=== PATIENT | male | born 1995 | race Caucasian/White ===

== ENCOUNTER 2024-10-12 04:37 | Inpatient (IN) | payer SELFPAY ==
--- NOTE | ~2024-10-12 | US_ITS ---
CLINICAL HISTORY: Right testicular abscess Exam: Ultrasound of the testes and scrotum with duplex evaluation of the testes. Comparison: None. Findings: Right testicle measures 5.9 x 3.6 x 3.6 cm in size. Right testicle is of normal echotexture without mass lesion. Several cysts within the right epididymis measure up to 13 mm in size. Large complex right hydrocele measures 6.4 x 4.8 cm in size. Numerous internal septations within this. Diffuse hyperemia surrounding hydrocele. Left testicle measures 5.7 x 2.6 x 3.2 cm in size. Left testicle is of normal echotexture without mass lesion. Left epididymis is unremarkable aside from a simple 9 mm cyst. Duplex evaluation of the testicles was performed. This included real-time grayscale, color spectral Doppler analysis, and color Doppler flow imaging. Documented blood flow to both testicles. Hyperemia surrounding the right hydrocele as discussed above. Impression: 1. Large complex right hydrocele with surrounding hyperemia. Given the clinical history provided of sexually transmitted infection, infected hydrocele should be considered and clinical correlation is advised. 2. No testicular mass or intratesticular abscess identified. This document has been electronically signed by: Ronald Carbone MD on 10/12/2024 06:24:08
[2024-10-12 04:44] VITALS: BP 141/56; BP 150/48; PULSE 77; RESP 17; TEMP 37.8; O2SAT 97; BMI 41.8
[2024-10-12 04:45] VITALS: BP 141/56; PULSE 77; RESP 21; TEMP 37.8; O2SAT 96
--- NOTE | 2024-10-12 04:50 | ED.MALEGU ---
HPI - Male Genitourinary General Chief complaint: Urogenital-Male Stated complaint: TESTICLE SWELLING Time Seen by Provider: 10/12/24 04:50 Source: patient Mode of arrival: ambulatory Limitations: no limitations History of Present Illness ED Provider: HPI Narrative: Patient is herosexual active with history of syphilis 3 years ago and GC chlamydia several years ago comes here for swelling of the right testicle with penile discharge for last 1 month which is getting worse with fever and chills for last few days no nausea no vomiting no abdominal pain Related Data Allergies Allergy/AdvReac Type Severity Reaction Status Date / Time No Known Allergies Allergy Verified 10/12/24 04:44 Review of Systems Review of Systems: Yes all other systems are reviewed and are negative [facility] Past Medical History Medical History (Updated 10/12/24 @ 07:28 by Cruz Reyes MD) History of syphilis History of chlamydia Social History Social History Unable to assess alcohol history related to: Unknown Use of substances other than those prescribed or required for medical reasons: Unknown Advance Directives: No Advance Directives Information Provided: Yes Do you have a plan to hurt others: No Plan Physical Exam Vital Signs: Vital Signs: Last Vital Signs Temp 98.1 F 10/12/24 07:22 Pulse 76 10/12/24 07:22 Resp 16 10/12/24 07:22 BP 123/62 10/12/24 07:22 Pulse Ox 99 10/12/24 07:22 O2 Del Method Room Air 10/12/24 07:22 BMI result Body Mass Index 41.8 Appearance: Alert. Oriented X3. In moderate distress febrile ENT: Pharynx normal. Oral Mucosa moist Neck: Normal inspection. Neck supple. CVS: Normal heart rate and rhythm. Pulses normal. Respiratory: No respiratory distress. Equal air entry bilateral, Abdomen: Soft and nontender. Bowel sounds are present, no mass palpable, no CVA tenderness : Whitish penile discharge with enlarged tender right testicle with fluid+++ hydrocele Skin: Skin warm and dry. Normal skin color. Normal skin turgor. Extremities: No lower extremity edema. No calf tenderness Neuro: Oriented X 3. No motor deficit. Medications Administered Generic Name Dose Route Start Last Admin Trade Name Freq PRN Reason Stop Dose Admin Doxycycline Hyclate 100 mg/ 250 mls @ 166.67 mls/hr 10/12/24 07:00 10/12/24 07:21 Sodium Chloride IV 166.67 mls/hr Q12H ION Administration Sodium Chloride 3 ml 10/12/24 08:00 10/12/24 07:26 0.9 % Sodium Chloride Flush 3 Ml Syringe IVFLUSH Not Given QSHIFT ION Discontinued Medications Generic Name Dose Route Start Last Admin Trade Name Naeem PRN Reason Stop Dose Admin Ceftriaxone Sodium 1 gm/ 0 gm 10/12/24 05:00 10/12/24 05:08 Lidocaine HCl 2.1 ml IM 10/12/24 05:01 1 kit ONCE ONE Administration Sodium Chloride 1,000 mls @ 999 mls/hr 10/12/24 04:55 10/12/24 06:43 Ns IV 10/12/24 05:55 Infused .Q1H1M ONE Infusion Levofloxacin 750 mg in 150 mls @ 100 mls/hr 10/12/24 04:55 10/12/24 06:43 Levaquin IV 10/12/24 06:24 Infused ONCE ONE Infusion Ketorolac Tromethamine 30 mg 10/12/24 05:46 10/12/24 05:51 Ketorolac Tromethamine 30 Mg/Ml Vial IVPUSH 10/12/24 05:47 30 mg ONCE ONE Administration Morphine Sulfate 4 mg 10/12/24 05:46 10/12/24 05:51 Morphine Sulfate 4 Mg/Ml Cartridge IVPUSH 10/12/24 05:47 4 mg ONCE ONE Administration Protocol Ondansetron HCl 4 mg 10/12/24 05:46 10/12/24 05:50 Ondansetron Hcl 4 Mg/2 Ml Vial IVPUSH 10/12/24 05:47 4 mg ONCE ONE Administration Medical Decision Making Medical Decision Making [facility] Narrative: Patient is sexually active with history of STIs with right infected hydrocele started on Levaquin IV with Rocephin IM. Case discussed Dr. Mendez to continue same treatment Dr. Mckeon follow on the floor Differential Diagnosis Differential Diagnoses: The differential diagnosis associated with the presentation includes Epididymitis/epididymo-orchitis/scrotal abscess/cellulitis Admission/Observation Consideration of admission/observation: Escalation of care including admission/observation considered Consult Healthcare Provider Management of the patient was discussed with: Hospitalist Lab Data MDM Lab Attestation statement: I reviewed the patient's lab results. 10/12/24 05:02 10/12/24 05:02 Labs: Lab Results 10/12/24 Range/Units 05:02 WBC 19.9 H (4.8-10.8) X10*3/uL RBC 4.92 (4.60-5.80) X10*6/uL Hgb 13.3 L (14.0-18.0) g/dl Hct 40.8 L (42.0-52.0) % MCV 82.9 (80.0-98.0) fL MCH 27.0 (27.0-33.0) pg MCHC 32.6 (31.0-36.0) g/dl RDW 12.3 (11.0-16.0) % Plt Count 354 (160-400) X10*3/uL MPV 9.6 (9.4-12.4) fL Immature Gran % (Auto) 0.7 H (0.0-0.4) % Neut % (Auto) 83.9 H (45-73) % Lymph % (Auto) 4.0 L (20-40) % [place] % (Auto) 11.0 (2-11) % Eos % (Auto) 0.1 (0-4) % Baso % (Auto) 0.3 (0-2) % Lymph # (Auto) 0.8 L (1.2-4.9) X10*3/uL [place] # (Auto) 2.2 H (0.1-1.2) X10*3/uL Eos # (Auto) 0.0 (0.0-0.4) X10*3/uL Baso # (Auto) 0.1 (0.0-0.2) X10*3/uL Abs Immat Gran (auto) 0.13 H (0.00-0.03) X10*3/uL Absolute Neuts (auto) 16.8 H (2.0-8.3) x10*3/uL Absolute Nucleated RBC 0.000 (0.0-0.012) X10*3/uL Nucleated RBC % (auto) 0.0 (0.0-0.2) /100WBC Smear Tech's Comments VERIFIED Sodium 136 (135-145) mmol/L Potassium 3.5 (3.3-5.1) mmol/L Chloride 105 (96-108) mmol/L Carbon Dioxide 23 (22-29) mmol/L Anion Gap 12 (12-20) BUN 6 L (9-16) mg/dL Creatinine 0.74 (0.5-1.4) mg/dL Estim Creat Clear Calc 205.5 Estimated GFR > 60 Random Glucose 121 H (60-115) mg/dL Lactic Acid 1.5 (0.5-2.0) mmol/L Calcium 8.8 (8.4-10.2) mg/dL Total Bilirubin 0.6 (0.0-1.0) mg/dL AST 21 (5-37) U/L ALT 15 (0-40) U/L Alkaline Phosphatase 47 (39-117) U/L Total Protein 7.2 (6.5-8.0) g/dL Albumin 3.9 (3.5-5.0) g/dL Influenza Type A (PCR) NEGATIVE (Negative) Influenza Type B (PCR) NEGATIVE (Negative) RSV RNA Qual (PCR) NEGATIVE (Negative) SARS-CoV-2 RNA (RT-PCR) NEGATIVE (Negative) Independent Interpretation I performed an independent interpretation of an: Ultrasound Radiology Impression Discussion of test interpretation with radiology: I have reviewed the radiologist's reading. Radiologist Impression: [place] [id number] Ultrasound Report Signed Patient: Stanislaw Monterroso MR#: [id number] : 1995 Acct:[id number] Age/Sex: 29 / M ADM Date: 10/12/24 Loc: .ED Attending Dr: Ordering Physician: Cruz Reyes MD Date of Service: 10/12/24 Procedure(s): US scrotum Accession Number(s): [id number] cc: Physician,Unknown ; Cruz Reyes MD~ CLINICAL HISTORY: Right testicular abscess Exam: Ultrasound of the testes and scrotum with duplex evaluation of the testes. Comparison: None. Findings: Right testicle measures 5.9 x 3.6 x 3.6 cm in size. Right testicle is of normal echotexture without mass lesion. Several cysts within the right epididymis measure up to 13 mm in size. Large complex right hydrocele measures 6.4 x 4.8 cm in size. Numerous internal septations within this. Diffuse hyperemia surrounding hydrocele. Left testicle measures 5.7 x 2.6 x 3.2 cm in size. Left testicle is of normal echotexture without mass lesion. Left epididymis is unremarkable aside from a simple 9 mm cyst. Duplex evaluation of the testicles was performed. This included real-time grayscale, color spectral Doppler analysis, and color Doppler flow imaging. Documented blood flow to both testicles. Hyperemia surrounding the right hydrocele as discussed above. Impression: 1. Large complex right hydrocele with surrounding hyperemia. Given the clinical history provided of sexually transmitted infection, infected hydrocele should be considered and clinical correlation is advised. 2. No testicular mass or intratesticular abscess identified. This document has been electronically signed by: Ronald Carbone MD on 10/12/2024 06:24:08 Discharge Plan Discharge Clinical Impression: Infected hydrocele, History of syphilis Patient Disposition: Admitted As Inpatient
[2024-10-12] MEDS: 0.9 % Sodium Chloride 1,000 ML 999 ML IV (05:08)
[2024-10-12] MEDS: levoFLOXacin/D5W 750 MG/150 ML PIGGYBACK 100 MG IV (05:08)
[2024-10-12] MEDS: cefTRIAXone sodium 1 GM, Lidocaine HCl 1 % MPF 2.1 ML IM (05:08)
[2024-10-12 05:23] LABS: Basophils Absolute Auto 0.1 X10*3/uL (0.0-0.2); Basophils Percent Auto 0.3 % (0-2); Eosinophils Percent Auto 0.1 % (0-4); Hematocrit 40.8 % (42.0-52.0); Hemoglobin 13.3 g/dl (14.0-18.0); Imm Gran Abs Auto 0.13 X10*3/uL (0.00-0.03); Imm Gran Pct Auto 0.7 % (0.0-0.4); Lymphocytes Absolute Auto 0.8 X10*3/uL (1.2-4.9); MANUAL DIFF FLAG SCAN; Mean Corpuscular HGB Conc 32.6 g/dl (31.0-36.0); Mean Corpuscular Volume 82.9 fL (80.0-98.0); Mean Platelet Volume 9.6 fL (9.4-12.4); Monocytes Absolute Auto 2.2 X10*3/uL (0.1-1.2); Neutrophils Absolute Auto 16.8 x10*3/uL (2.0-8.3); Neutrophils Percent Auto 83.9 % (45-73); Platelet Count 354 X10*3/uL (160-400); Red Blood Count 4.92 X10*6/uL (4.60-5.80); Red Cell Distribution Width 12.3 % (11.0-16.0); SCAN SMEAR FLAG 1; White Blood Count 19.9 X10*3/uL (4.8-10.8)
[2024-10-12 05:41] LABS: SLIDE REVIEW VERIFIED
[2024-10-12 05:45] LABS: Lactic Acid 1.5 mmol/L (0.5-2.0)
[2024-10-12 05:46] LABS: Alanine Aminotransferase 15 U/L (0-40); Albumin Level 3.9 g/dL (3.5-5.0); Alkaline Phosphatase 47 U/L (39-117); Anion Gap 12 (12-20); Aspartate Amino Transferase 21 U/L (5-37); Bilirubin Total 0.6 mg/dL (0.0-1.0); Blood Urea Nitrogen 6 mg/dL (9-16); Calcium 8.8 mg/dL (8.4-10.2); Carbon Dioxide 23 mmol/L (22-29); Chloride 105 mmol/L (96-108); Creatinine Clr Calc Pharmacy 205.5; Estimated Glomerular Filt Rate > 60; Glucose Random 121 mg/dL (60-115); Potassium 3.5 mmol/L (3.3-5.1); Sodium 136 mmol/L (135-145); Total Protein 7.2 g/dL (6.5-8.0)
[2024-10-12] MEDS: ondansetron HCL 4 MG/2 ML VIAL IVPUSH (05:50)
[2024-10-12] MEDS: Ketorolac Tromethamine 30 MG/ML VIAL IVPUSH (05:51)
[2024-10-12] MEDS: Morphine Sulfate 4 MG/ML CARTRIDGE IVPUSH ×2 (05:51→16:24)
[2024-10-12 05:59] LABS: Influenza A PCR NEGATIVE (Negative); Influenza B PCR NEGATIVE (Negative); Resp Syncy Virus RNA Qual PCR NEGATIVE (Negative); SARS COV2 PCR INHOUSE NEGATIVE (Negative)
--- NOTE | 2024-10-12 06:26 | P.HPHOSP_ITS ---
History of Present Illness Date of Service: 10/12/24 Attending physician on admission: Sonja Ramirez Chief Complaint: R testicular swelling, penile discharge Patient is a 29-year-old male with a past medical history significant for syphilis at 26 years old and chlamydia at 16 years old, who presented to the ED with right testicular swelling since 10/08/2024 and penile discharge worsening over the past few months. He denies any blood in the discharge or foul odor. Since the swelling began he started to have a fever and chills. He reports he was last sexually active on 10/09/2024. He does have increased pain with a bowel movement and denies any nausea vomiting or urinary symptoms including dysuria, frequency or urgency. He denies any abdominal pain. He denies anal intercourse or recent urologic procedures. Review of Systems 2 Constitutional: Constitutional: Reports chills, Denies fatigue, Reports fever(s) and Denies headache(s) Eyes: Eyes: Denies change in vision ENT: Denies headache(s), Denies nasal congestion, Denies nasal discharge and Denies sore throat Cardiovascular: Cardiovascular: Denies chest pain, Denies rapid heart rate, Denies leg edema, Denies lightheadedness and Denies dyspnea Respiratory: Respiratory: Denies chest congestion, Denies cough, Denies dyspnea and Denies wheezing Gastrointestinal: Gastrointestinal: Denies constipation, Denies nausea and Denies vomiting Genitourinary: Genitourinary: Reports as per HPI, Denies dysuria, Reports penile discharge, Reports scrotal swelling, Denies urinary frequency, Denies urinary hesitancy and Denies urinary urgency Musculoskeletal: Musculoskeletal: Denies numbness and Denies tingling Integumentary/Breasts: Skin/Breast: Denies rash Neurologic: Denies confusion, Denies headache(s), Denies numbness and Denies tingling Psychiatric: Psychiatric: Denies confusion Endocrine: Endocrine: Denies fatigue Hematologic/Lymphatic: Hematologic/Lymphatic: Denies easy bleeding and Denies easy bruising Allergic/Immunologic: Allergic/Immunologic: Denies wheezing [facility] Medical History (Updated 10/12/24 @ 06:33 by Lupis Burton PA-C) History of syphilis History of chlamydia Functional capacity: independent ambulation Social History Advance Directives: No Advance Directives Information Provided: Yes Do you have a plan to hurt others: No Plan Narrative: sexually active with girlfriend. works as a DJ. drinks on weekends at work. vapes nicotine. occasional cocaine use. Meds Allergies Allergy/AdvReac Type Severity Reaction Status Date / Time No Known Allergies Allergy Verified 10/12/24 04:44 Physical Exam 2 Vital Signs and Narrative: Vital Signs: Last Vital Signs Temp 100.0 F 10/12/24 04:45 Pulse 77 10/12/24 04:45 Resp 21 H 10/12/24 04:45 BP 141/56 H 10/12/24 04:45 Pulse Ox 96 10/12/24 04:45 O2 Del Method Room Air 10/12/24 04:45 BMI result Body Mass Index 41.8 General: AOx3, appears uncomfotable. girlfriend present in room initally but asked to leave for pt comfort Resp: CTA bilaterally CVS: S1, S2, RRR GI: +BS, NT, no distention Skin: Warm, dry : significant edema R testicle about the size of a baseball with erythema, tender to touch. no penile discharge currently Neuro: Cranial nerves II-XII grossly intact bilaterally. Motor grossly intact bilaterally Extremities: No LE edema Psych: Appropriate affect Const: General: No confusion Orientation/consciousness: No confusion Neuro: General: No confusion Results Labs 10/12/24 05:02 10/12/24 05:02 Labs: Laboratory Results - last 24 hr 10/12/24 05:02 MCV 82.9 MCH 27.0 MCHC 32.6 RDW 12.3 Plt Count 354 MPV 9.6 Immature Gran % (Auto) 0.7 H Neut % (Auto) 83.9 H Lymph % (Auto) 4.0 L [place] % (Auto) 11.0 Eos % (Auto) 0.1 Baso % (Auto) 0.3 Lymph # (Auto) 0.8 L [place] # (Auto) 2.2 H Eos # (Auto) 0.0 Baso # (Auto) 0.1 Abs Immat Gran (auto) 0.13 H Absolute Neuts (auto) 16.8 H Absolute Nucleated RBC 0.000 Nucleated RBC % (auto) 0.0 Smear Tech's Comments VERIFIED Anion Gap 12 Estim Creat Clear Calc 205.5 Estimated GFR > 60 Random Glucose 121 H Lactic Acid 1.5 Calcium 8.8 Total Bilirubin 0.6 AST 21 ALT 15 Alkaline Phosphatase 47 Total Protein 7.2 Albumin 3.9 Influenza Type A (PCR) NEGATIVE Influenza Type B (PCR) NEGATIVE RSV RNA Qual (PCR) NEGATIVE SARS-CoV-2 RNA (RT-PCR) NEGATIVE Assessment and Plan (1) Sepsis: Status: Acute (2) Infected hydrocele: Status: Acute (3) History of chlamydia: Status: Acute (4) Morbid obesity with BMI of 40.0-44.9, adult: Status: Chronic Plan Patient is a 29-year-old male with a past medical history significant for syphilis at 26 years old and chlamydia at 16 years old, who presented to the ED with right testicular swelling since 10/08/2024 and penile discharge worsening over the past few months. Scrotal ultrasound with infected hydrocele. Unable to give urine sample for STI testing and UA. Urology was contacted by the ED for admission however declined and recommended hospitalist admission. Sepsis secondary to infected hydrocele, history of chlamydia - WBC 19.9, jing 100.0, mild tachypnea, lactic acid normal, blood cultures x2 pending, not severe sepsis - scrotal ultrasound with infected hydrocele - has been unable to urinate for STI testing and UA - patient given ceftriaxone IM and started on IV Levaquin in ED, switch to IV doxycycline as patient has not had any recent urologic procedures and does not participate in anal intercourse - NPO - urology consult - monitor CBC and BMP Morbid obesity - BMI 41.8 - weight loss encouraged Full code VTE prophylaxis: Pneumoboots pending evaluation by Urology Patient with sepsis secondary to infected hydrocele, requiring admission for at least 2 midnights stay for IV antibiotics. Quality Stroke Does the patient have a stroke diagnosis?: No VTE Prior VTE?: No VTE Risk Level:: Medical - moderate - high VTE Device Contraindication: N/A - Device Ordered VTE Drug Contraindication: Treatment Not Indicated
[2024-10-12 07:14] LABS: Appearance Urine Cloudy; Color Urine Dark Yellow; Glucose Urine UA Negative (Negative); Leukocyte Esterase Urine Negative (Negative); Nitrite Urine Negative (Negative); PH 7.5 (5.0-9.0); Specific Gravity - Urine 1.025 (1.005-1.025); UMIC TRIGGER UACC YES; Urine Blood Negative (Negative); Urine Ketones Trace mg/dL (Negative); Urine Protein 30 (1+) mg/dL (Neg-Trace)
[2024-10-12 07:18] LABS: Bacteria Urine None Seen (None Seen); Hyaline Casts Urine 0-2 /LPF (0-2); RBC Urine 0-2 /HPF (0-2); WBC Urine 0-5 /HPF (0-5)
[2024-10-12] MEDS: Doxycycline Hyclate 100 MG in 0.9 % Sodium Chloride 250 ML 166.67 MG IV ×2 (07:21→18:06)
[2024-10-12 07:22] VITALS: BP 123/62; PULSE 76; RESP 16; TEMP 36.7; O2SAT 99
[2024-10-12 07:52] LABS: Syphilis Screen Reactive (Nonreactive)
--- NOTE | 2024-10-12 08:00 | PC.NURSE ---
assumed care of patient, patient is alert and oriented x4, was able to ambulate on own with steady gait to the bathroom for urine sample. patient VSS, skin noted to be dry and intact, resp even and unlabored. medicated per MAR
--- NOTE | 2024-10-12 09:55 | PHA.MEDREC ---
Addendum entered by Esa Rodriguez RPh 10/12/24 10:31: MED REC CHECKED BY [facility] Original Note: Pharmacy Consult ? Medication Reconciliation Pharmacy has completed the medication reconciliation.
[2024-10-12 10:42] LABS: CT PCR NOT DETECTED (Not Detect.); NG PCR NOT DETECTED (Not Detect.)
--- NOTE | 2024-10-12 11:34 | PM.UROCN ---
History of Present Illness Consult details Consult date: 10/12/24 Narrative: CC: Right infected hydrocele 29-year-old male Past history syphilis 3 years ago, chlamydia 13 years ago Presents to emergency room with swelling for prior 3 days Penile discharge Reports fever and chills WBC 19.9, temp 100 degrees Has been given IV antibiotics On exam has swollen right testicle, warm to touch, [id number] discomfort Treat with antibiotics for 48 hours before decision should be made regarding incision and drainage Review of Systems Constitutional: Constitutional: Reports as per HPI and Reports no additional constitutional complaints Cardiovascular: Cardiovascular: Reports as per HPI and Reports no additional cardiovascular complaints Respiratory: Respiratory: Reports as per HPI and Reports no additional respiratory complaints Gastrointestinal: Gastrointestinal: Reports as per HPI and Reports no additional gastrointestinal complaints Genitourinary: Genitourinary: Reports as per HPI Musculoskeletal: Musculoskeletal: Reports no additional musculoskeletal complaints and Reports as per HPI Neurologic: Reports system reviewed and no additional complaints, except as documented and Reports as per HPI [facility] Past Medical History Medical History (Updated 10/12/24 @ 07:28 by Cruz Reyes MD) History of syphilis History of chlamydia Social History Social History Unable to assess alcohol history related to: Unknown Use of substances other than those prescribed or required for medical reasons: Unknown Advance Directives: No Advance Directives Information Provided: Yes Do you have a plan to hurt others: No Plan Meds Allergies Allergy/AdvReac Type Severity Reaction Status Date / Time No Known Allergies Allergy Verified 10/12/24 04:44 Active Medications: Current Medications Acetaminophen (Acetaminophen 325 Mg Tablet) 650 mg PO Q6H PRN PRN Reason: Pain, Mild 1-3,fever,headache Calcium Carbonate (Calcium Carbonate 750 Mg Tab.Chew) 750 mg PO Q4H PRN PRN Reason: Heartburn Doxycycline Hyclate 100 mg/ (Sodium Chloride) 250 mls @ 166.67 mls/hr IV Q12H ION Last Infusion: 10/12/24 08:56 Dose: Infused Magnesium Hydroxide (Milk Of Magnesia 30 Ml Oral.Susp) 30 ml PO DAILY PRN PRN Reason: Constipation Melatonin (Melatonin 3 Mg Tablet) 6 mg PO BEDTIME PRN PRN Reason: Insomnia Morphine Sulfate (Morphine Sulfate 4 Mg/Ml Cartridge) 4 mg IVPUSH Q4H PRN; Protocol PRN Reason: Pain, Severe (Pain Scale 7-10) Ondansetron HCl (Ondansetron Hcl 4 Mg/2 Ml Vial) 4 mg IVPUSH Q8H PRN PRN Reason: Nausea and Vomiting Sodium Chloride (0.9 % Sodium Chloride Flush 3 Ml Syringe) 3 ml IVFLUSH QSHIFT ION Last Admin: 10/12/24 07:26 Dose: Not Given Home Medications ?Medication ?Instructions ?Recorded ?Confirmed ?Last Taken ?Type No Known Home Meds 10/12/24 10/12/24 Unknown History Physical Exam Vital Signs: Vital Signs: Last Vital Signs Temp 98.1 F 10/12/24 07:22 Pulse 76 10/12/24 07:22 Resp 16 10/12/24 07:22 BP 123/62 10/12/24 07:22 Pulse Ox 99 10/12/24 07:22 O2 Del Method Room Air 10/12/24 07:22 BMI result Body Mass Index 41.8 Const: General: cooperative, healthy appearing, comfortable and no acute distress Orientation/consciousness: patient oriented x3 HEENT: Face and sinus: Yes normal facial exam Mouth: moist mucous membranes Neck: Neck: Yes normal visual inspection, Yes full ROM and Yes trachea midline Chest: Chest palpation & inspection: normal inspection of the chest Resp: Effort & Inspection: normal respiratory effort, able to speak in complete sentences and no respiratory distress GI: Inspection: Yes normal to inspection Back/Spine/Pelvis: Cervical Spine: normal cervical lordosis Thoracic/Lumbar Spine: thoracic and lumbar spine normal to inspection Skin: General skin exam: no rashes or lesions noted Neuro: General: patient oriented x3, tone normal and moves all extremities Extrem: General: Yes normal to inspection and Yes capillary refill normal Results Labs 10/12/24 05:02 10/12/24 05:02 Labs: Abnormal lab results 10/12/24 10/12/24 10/12/24 Range/Units 05:02 06:49 07:07 WBC 19.9 H (4.8-10.8) X10*3/uL Hgb 13.3 L (14.0-18.0) g/dl Hct 40.8 L (42.0-52.0) % Immature Gran % (Auto) 0.7 H (0.0-0.4) % Neut % (Auto) 83.9 H (45-73) % Lymph % (Auto) 4.0 L (20-40) % Lymph # (Auto) 0.8 L (1.2-4.9) X10*3/uL [place] # (Auto) 2.2 H (0.1-1.2) X10*3/uL Abs Immat Gran (auto) 0.13 H (0.00-0.03) X10*3/uL Absolute Neuts (auto) 16.8 H (2.0-8.3) x10*3/uL BUN 6 L (9-16) mg/dL Random Glucose 121 H (60-115) mg/dL Urine Protein 30 (1+) H (Neg-Trace) mg/dL T.pallidum Ab (EIA) Reactive A (Nonreactive) Short CBC 10/12/24 Range/Units 05:02 WBC 19.9 H (4.8-10.8) X10*3/uL Hgb 13.3 L (14.0-18.0) g/dl Hct 40.8 L (42.0-52.0) % Plt Count 354 (160-400) X10*3/uL BMP 10/12/24 05:02 Sodium 136 Potassium 3.5 Chloride 105 Carbon Dioxide 23 BUN 6 L Creatinine 0.74 Calcium 8.8 Liver Function 10/12/24 Range/Units 05:02 Total Bilirubin 0.6 (0.0-1.0) mg/dL AST 21 (5-37) U/L ALT 15 (0-40) U/L Alkaline Phosphatase 47 (39-117) U/L Albumin 3.9 (3.5-5.0) g/dL Urine 10/12/24 Range/Units 07:07 Urine Color Dark Yellow Urine Appearance Cloudy Urine pH 7.5 (5.0-9.0) Ur Specific [place] 1.025 (1.005-1.025) Urine Protein 30 (1+) H (Neg-Trace) mg/dL Urine Glucose (UA) Negative (Negative) mg/dL All other labs normal. Assessment and Plan (1) Infected hydrocele: Status: Acute Plan Treat with IV fluids and antibiotics Review daily Procedures Date of Service Date of Service: 10/12/24
--- NOTE | 2024-10-12 13:33 | PM.EVENT ---
Event Note Date of Service: 10/12/24 Event Note: Patient is a 29-year-old male with a past medical history significant for syphilis at 26 years old and chlamydia at 16 years old, who presented to the ED with right testicular swelling since 10/08/2024 and penile discharge worsening over the past few months. Scrotal ultrasound with infected hydrocele. Unable to give urine sample for STI testing and UA. Urology was contacted by the ED for admission however declined and recommended hospitalist admission. Sepsis secondary to infected hydrocele, history of chlamydia scrotal ultrasound with infected hydrocele neg STI testing patient given ceftriaxone IM and started on IV Levaquin in ED, switch to IV doxycycline as patient has not had any recent urologic procedures and does not participate in anal intercourse urology following>continue abx and monitor monitor CBC and BMP Morbid obesity BMI 41.8 weight loss encouraged Full code VTE prophylaxis: Pneumoboots pending evaluation by Urology Patient with sepsis secondary to infected hydrocele, requiring admission for at least 2 midnights stay for IV antibiotics. Time Spent With Patient Time: Total time managing care of this patient today ____ minutes.
[2024-10-12 14:56] VITALS: BP 128/67; PULSE 77; RESP 16; TEMP 37.2; O2SAT 98
[2024-10-12 16:00] VITALS: BP 129/60; PULSE 73; RESP 18; TEMP 37.2; O2SAT 96
[2024-10-12] MEDS: 0.9 % Sodium Chloride Flush 3 ML SYRINGE IVFLUSH ×2 (16:28→19:53)
[2024-10-12 19:51] VITALS: BP 127/65; PULSE 68; RESP 17; TEMP 36.6; O2SAT 98
[2024-10-13 03:54] VITALS: BP 154/80; PULSE 80; RESP 18; TEMP 37.2; O2SAT 99
[2024-10-13 06:02] LABS: Basophils Absolute Auto 0.1 X10*3/uL (0.0-0.2); Basophils Percent Auto 0.3 % (0-2); Eosinophils Absolute Auto 0.1 X10*3/uL (0.0-0.4); Eosinophils Percent Auto 0.3 % (0-4); Hematocrit 43.3 % (42.0-52.0); Hemoglobin 13.9 g/dl (14.0-18.0); Imm Gran Abs Auto 0.16 X10*3/uL (0.00-0.03); Imm Gran Pct Auto 0.7 % (0.0-0.4); Lymphocytes Percent Auto 8.5 % (20-40); MANUAL DIFF FLAG SCAN; Mean Corpuscular HGB Conc 32.1 g/dl (31.0-36.0); Mean Corpuscular Volume 84.1 fL (80.0-98.0); Mean Platelet Volume 10.3 fL (9.4-12.4); Monocytes Absolute Auto 2.8 X10*3/uL (0.1-1.2); Monocytes Percent Auto 11.4 % (2-11); Neutrophils Percent Auto 78.8 % (45-73); Platelet Count 396 X10*3/uL (160-400); Red Blood Count 5.15 X10*6/uL (4.60-5.80); Red Cell Distribution Width 12.5 % (11.0-16.0); SCAN SMEAR FLAG 1; White Blood Count 24.1 X10*3/uL (4.8-10.8)
[2024-10-13 06:20] LABS: Anion Gap 15 (12-20); Blood Urea Nitrogen 8 mg/dL (9-16); Calcium 9.8 mg/dL (8.4-10.2); Carbon Dioxide 22 mmol/L (22-29); Chloride 105 mmol/L (96-108); Creatinine Clr Calc Pharmacy 205.5; Estimated Glomerular Filt Rate > 60; Glucose Random 96 mg/dL (60-115); Potassium 3.9 mmol/L (3.3-5.1); Sodium 138 mmol/L (135-145)
[2024-10-13 06:24] LABS: SLIDE REVIEW VERIFIED
[2024-10-13] MEDS: Doxycycline Hyclate 100 MG in 0.9 % Sodium Chloride 250 ML 166.67 MG IV (06:35)
[2024-10-13 07:56] VITALS: BP 120/58; PULSE 80; RESP 16; TEMP 36.6; O2SAT 97
--- NOTE | 2024-10-13 08:46 | HO.PM.IMPN ---
Subjective Subjective Date of Service: 10/13/24 Review of Systems Follow up testicular pain, hydrocele pain is improved still with swelling Physical Exam Vital Signs: Vital Signs: Last Vital Signs Temp 97.9 F 10/13/24 07:56 Pulse 80 10/13/24 07:56 Resp 16 10/13/24 07:56 BP 120/58 L 10/13/24 07:56 Pulse Ox 97 10/13/24 07:56 O2 Del Method Room Air 10/13/24 07:56 BMI result Body Mass Index 41.8 Appearing in no acute distress lung sounds are clear to auscultation heart regular rate rhythm, clear S1, S2 positive bowel sounds, abdomen is soft, nontender neuro patient is alert x3, no focal deficits edema to testicles Objective Data Active Medications Acetaminophen (Acetaminophen 325 Mg Tablet) 650 mg PO Q6H PRN PRN Reason: Pain, Mild 1-3,fever,headache Calcium Carbonate (Calcium Carbonate 750 Mg Tab.Chew) 750 mg PO Q4H PRN PRN Reason: Heartburn Doxycycline Hyclate 100 mg/ (Sodium Chloride) 250 mls @ 166.67 mls/hr IV Q12H [facility] Last Infusion: 10/13/24 08:20 Dose: Infused Documented By: ARINA Magnesium Hydroxide (Milk Of Magnesia 30 Ml Oral.Susp) 30 ml PO DAILY PRN PRN Reason: Constipation Melatonin (Melatonin 3 Mg Tablet) 6 mg PO BEDTIME PRN PRN Reason: Insomnia Morphine Sulfate (Morphine Sulfate 4 Mg/Ml Cartridge) 4 mg IVPUSH Q4H PRN; Protocol PRN Reason: Pain, Severe (Pain Scale 7-10) Last Admin: 10/12/24 16:24 Dose: 4 mg Documented By: LV Ondansetron HCl (Ondansetron Hcl 4 Mg/2 Ml Vial) 4 mg IVPUSH Q8H PRN PRN Reason: Nausea and Vomiting Sodium Chloride (0.9 % Sodium Chloride Flush 3 Ml Syringe) 3 ml IVFLUSH QSHIFT [facility] Last Admin: 10/13/24 08:05 Dose: Not Given Documented By: ARINA Non-Admin Reason: IV Running Labs 10/13/24 05:25 10/13/24 05:25 Labs: Laboratory Results - last 24 hr 10/12/24 10/13/24 07:07 05:25 MCV 84.1 MCH 27.0 MCHC 32.1 RDW 12.5 Plt Count 396 MPV 10.3 Immature Gran % (Auto) 0.7 H Neut % (Auto) 78.8 H Lymph % (Auto) 8.5 L [place] % (Auto) 11.4 H Eos % (Auto) 0.3 Baso % (Auto) 0.3 Lymph # (Auto) 2.0 [place] # (Auto) 2.8 H Eos # (Auto) 0.1 Baso # (Auto) 0.1 Abs Immat Gran (auto) 0.16 H Absolute Neuts (auto) 19.0 H Absolute Nucleated RBC 0.000 Nucleated RBC % (auto) 0.0 Smear Tech's Comments VERIFIED Anion Gap 15 Estim Creat Clear Calc 205.5 Estimated GFR > 60 Random Glucose 96 Calcium 9.8 D Chlam trachomat DNA PCR NOT DETECTED N.gonorrhoeae DNA (PCR) NOT DETECTED Microbiology Microbiology Results: Microbiology 10/12/24 05:05 Blood Culture - Preliminary Blood - Venous No growth after 24 hours. 10/12/24 05:02 Blood Culture - Preliminary Blood - Venous No growth after 24 hours. Assessment and Plan (1) Infected hydrocele: Status: Acute Plan Patient is a 29-year-old male with a past medical history significant for syphilis at 26 years old and chlamydia at 16 years old, who presented to the ED with right testicular swelling since 10/08/2024 and penile discharge worsening over the past few months. Scrotal ultrasound with infected hydrocele. Unable to give urine sample for STI testing and UA. Urology was contacted by the ED for admission however declined and recommended hospitalist admission. Sepsis secondary to infected hydrocele, history of chlamydia scrotal ultrasound with infected hydrocele neg STI testing patient given ceftriaxone IM and started on IV Levaquin in ED, switch to IV doxycycline as patient has not had any recent urologic procedures and does not participate in anal intercourse urology following>continue abx and monitor monitor CBC and BMP Morbid obesity BMI 41.8 weight loss encouraged Full code VTE prophylaxis: Pneumoboots pending evaluation by Urology Patient with sepsis secondary to infected hydrocele, requiring admission for at least 2 midnights stay for IV antibiotics. Quality Stroke Does the patient have a stroke diagnosis?: No VTE Prior VTE?: No VTE Risk Level:: Medical - moderate - high VTE Device Contraindication: N/A - Device Ordered VTE Drug Contraindication: Treatment Not Indicated
--- NOTE | 2024-10-13 10:16 | MHC.CM.PN ---
PATIENT LIVES IN AN APARTMENT ALONE. FUNCTIONALLY INDEPENDENT. DENIES USE OF DME OR SERVICES. NO INSURANCE LISTED - GIRLFRIEND BELIEVES HE HAS A [employer] PRODUCT ?LISA. NO PCP - WAS SEEN AT [facility] IN THE PAST. GIRLFRIEND WILL CALL TOMORROW TO SCHEDULE APPT TO RE-ESTABLISH CARE. NO HCP. DECLINES AT THIS TIME. DP: HOME SELF CARE. GIRLFRIEND TO TRANSPORT.
--- NOTE | 2024-10-13 12:46 | P.PNUR_ITS ---
Subjective Subjective Date of Service: 10/13/24 Interval history: Still complains of right swollen testicle WBC 24 Testicle has reactive hydrocele Will plan on aspiration tomorrow if persistent side Physical Exam 2 Vital Signs: Vital Signs: Last Vital Signs Temp 97.9 F 10/13/24 07:56 Pulse 80 10/13/24 07:56 Resp 16 10/13/24 07:56 BP 120/58 L 10/13/24 07:56 Pulse Ox 97 10/13/24 07:56 O2 Del Method Room Air 10/13/24 07:56 BMI result Body Mass Index 41.8 Const: General: cooperative, healthy appearing, comfortable and no acute distress Orientation/consciousness: patient oriented x3 HEENT: Face and sinus: Yes normal facial exam Mouth: moist mucous membranes Neck: Neck: Yes normal visual inspection, Yes full ROM and Yes trachea midline Chest: Chest palpation & inspection: normal inspection of the chest Resp: Effort & Inspection: normal respiratory effort, able to speak in complete sentences and no respiratory distress GI: Inspection: Yes normal to inspection Back/Spine/Pelvis: Cervical Spine: normal cervical lordosis Thoracic/Lumbar Spine: thoracic and lumbar spine normal to inspection Skin: General skin exam: no rashes or lesions noted Neuro: General: patient oriented x3, tone normal and moves all extremities Extrem: General: Yes normal to inspection and Yes capillary refill normal Urology Results Labs 10/13/24 05:25 10/13/24 05:25 Labs: Laboratory Results - last 24 hr 10/13/24 05:25 WBC 24.1 H RBC 5.15 Hgb 13.9 L Hct 43.3 MCV 84.1 MCH 27.0 MCHC 32.1 RDW 12.5 Plt Count 396 MPV 10.3 Immature Gran % (Auto) 0.7 H Neut % (Auto) 78.8 H Lymph % (Auto) 8.5 L [place] % (Auto) 11.4 H Eos % (Auto) 0.3 Baso % (Auto) 0.3 Lymph # (Auto) 2.0 [place] # (Auto) 2.8 H Eos # (Auto) 0.1 Baso # (Auto) 0.1 Abs Immat Gran (auto) 0.16 H Absolute Neuts (auto) 19.0 H Absolute Nucleated RBC 0.000 Nucleated RBC % (auto) 0.0 Smear Tech's Comments VERIFIED Sodium 138 Potassium 3.9 Chloride 105 Carbon Dioxide 22 Anion Gap 15 BUN 8 L Creatinine 0.74 Estim Creat Clear Calc 205.5 Estimated GFR > 60 Random Glucose 96 Calcium 9.8 D Progress Note: A&P Assessment and plan (1) Infected hydrocele: Status: Acute Assessment and Plan: Plan aspiration tomorrow of persistent size Time Spent With Patient Time: Total time managing care of this patient today ____ minutes. Progress Note: Quality Stroke Does the patient have a stroke diagnosis?: No
[2024-10-13] MEDS: Morphine Sulfate 4 MG/ML CARTRIDGE IVPUSH ×2 (12:52→23:58)
[2024-10-13 15:08] VITALS: BP 147/80; PULSE 83; RESP 20; TEMP 36.9; O2SAT 97
[2024-10-13] MEDS: Doxycycline Hyclate 100 MG in 0.9 % Sodium Chloride 250 ML 250 MG IV (18:06)
[2024-10-13] MEDS: 0.9 % Sodium Chloride Flush 3 ML SYRINGE IVFLUSH (18:06)
[2024-10-13 19:14] VITALS: BP 137/82; PULSE 71; RESP 20; TEMP 36.4; O2SAT 99
[2024-10-13 23:58] VITALS: RESP 17
[2024-10-14] MEDS: 0.9 % Sodium Chloride Flush 3 ML SYRINGE IVFLUSH ×3 (00:46→19:47)
[2024-10-14 03:56] VITALS: BP 149/81; PULSE 67; RESP 18; TEMP 37.2; O2SAT 100
[2024-10-14] MEDS: Doxycycline Hyclate 100 MG in 0.9 % Sodium Chloride 250 ML 166.67 MG IV ×2 (06:07→18:13)
[2024-10-14 06:46] LABS: Hematocrit 42.4 % (42.0-52.0); Hemoglobin 13.5 g/dl (14.0-18.0); Mean Corpuscular HGB Conc 31.8 g/dl (31.0-36.0); Mean Corpuscular Hemoglobin 26.9 pg (27.0-33.0); Mean Corpuscular Volume 84.6 fL (80.0-98.0); Mean Platelet Volume 10.5 fL (9.4-12.4); Platelet Count 362 X10*3/uL (160-400); Red Blood Count 5.01 X10*6/uL (4.60-5.80); Red Cell Distribution Width 12.6 % (11.0-16.0); White Blood Count 13.7 X10*3/uL (4.8-10.8)
[2024-10-14 07:22] VITALS: BP 133/72; PULSE 74; RESP 16; TEMP 36.7; O2SAT 97
[2024-10-14 07:23] LABS: Anion Gap 10 (12-20); Blood Urea Nitrogen 8 mg/dL (9-16); Calcium 9.1 mg/dL (8.4-10.2); Carbon Dioxide 27 mmol/L (22-29); Chloride 106 mmol/L (96-108); Creatinine Clr Calc Pharmacy 205.5; Estimated Glomerular Filt Rate > 60; Glucose Random 83 mg/dL (60-115); Potassium 3.8 mmol/L (3.3-5.1); Sodium 139 mmol/L (135-145)
[2024-10-14] MEDS: Morphine Sulfate 4 MG/ML CARTRIDGE IVPUSH ×2 (09:06→17:11)
--- NOTE | 2024-10-14 14:22 | P.PNIM_ITS ---
Subjective Subjective Date of Service: 10/14/24 Review of Systems Follow up testicular pain, hydrocele pain is improved still with swelling Physical Exam 2 Vital Signs: Vital Signs: Last Vital Signs Temp 98.0 F 10/14/24 07:22 Pulse 74 10/14/24 07:22 Resp 16 10/14/24 07:22 BP 133/72 10/14/24 07:22 Pulse Ox 97 10/14/24 07:22 O2 Del Method Room Air 10/14/24 07:22 BMI result Body Mass Index 41.8 Appearing in no acute distress lung sounds are clear to auscultation heart regular rate rhythm, clear S1, S2 positive bowel sounds, abdomen is soft, nontender neuro patient is alert x3, no focal deficits Testicular edema Objective Data Active Medications Acetaminophen (Acetaminophen 325 Mg Tablet) 650 mg PO Q6H PRN PRN Reason: Pain, Mild 1-3,fever,headache Calcium Carbonate (Calcium Carbonate 750 Mg Tab.Chew) 750 mg PO Q4H PRN PRN Reason: Heartburn Doxycycline Hyclate 100 mg/ (Sodium Chloride) 250 mls @ 166.67 mls/hr IV Q12H [facility] Last Infusion: 10/14/24 08:27 Dose: Infused Documented By: CALIN Magnesium Hydroxide (Milk Of Magnesia 30 Ml Oral.Susp) 30 ml PO DAILY PRN PRN Reason: Constipation Melatonin (Melatonin 3 Mg Tablet) 6 mg PO BEDTIME PRN PRN Reason: Insomnia Morphine Sulfate (Morphine Sulfate 4 Mg/Ml Cartridge) 4 mg IVPUSH Q4H PRN; Protocol PRN Reason: Pain, Severe (Pain Scale 7-10) Last Admin: 10/14/24 09:06 Dose: 4 mg Documented By: CALIN Ondansetron HCl (Ondansetron Hcl 4 Mg/2 Ml Vial) 4 mg IVPUSH Q8H PRN PRN Reason: Nausea and Vomiting Sodium Chloride (0.9 % Sodium Chloride Flush 3 Ml Syringe) 3 ml IVFLUSH QSHIFT [facility] Last Admin: 10/14/24 07:20 Dose: Not Given Documented By: CALIN Non-Admin Reason: IV Running Labs 10/14/24 05:28 10/14/24 05:28 Labs: Laboratory Results - last 24 hr 10/14/24 05:28 MCV 84.6 MCH 26.9 L MCHC 31.8 RDW 12.6 Plt Count 362 MPV 10.5 Absolute Nucleated RBC 0.000 Nucleated RBC % (auto) 0.0 Anion Gap 10 L Estim Creat Clear Calc 205.5 Estimated GFR > 60 Random Glucose 83 Calcium 9.1 D Microbiology Microbiology Results: Microbiology 10/12/24 05:05 Blood Culture - Preliminary Blood - Venous No growth after 48 hours. 10/12/24 05:02 Blood Culture - Preliminary Blood - Venous No growth after 48 hours. Assessment and Plan (1) Infected hydrocele: Status: Acute Plan Patient is a 29-year-old male with a past medical history significant for syphilis at 26 years old and chlamydia at 16 years old, who presented to the ED with right testicular swelling since 10/08/2024 and penile discharge worsening over the past few months. Scrotal ultrasound with infected hydrocele. Unable to give urine sample for STI testing and UA. Urology was contacted by the ED for admission however declined and recommended hospitalist admission. Sepsis secondary to infected hydrocele, history of chlamydia scrotal ultrasound with infected hydrocele neg STI testing patient given ceftriaxone IM and started on IV Levaquin in ED, switch to IV doxycycline as patient has not had any recent urologic procedures and does not participate in anal intercourse urology following>continue abx and monitor, ? possible aspiration as per Dr. Mckeon Morbid obesity BMI 41.8 weight loss encouraged Full code VTE prophylaxis: Pneumoboots pending evaluation by Urology Patient with sepsis secondary to infected hydrocele, requiring admission for at least 2 midnights stay for IV antibiotics. Quality Stroke Does the patient have a stroke diagnosis?: No VTE Prior VTE?: No VTE Risk Level:: Medical - moderate - high VTE Device Contraindication: N/A - Device Ordered VTE Drug Contraindication: Treatment Not Indicated
--- NOTE | 2024-10-14 15:15 | MHC.CM.PN ---
per rounds pt still has aspiration dc plan remains home
[2024-10-14 15:16] VITALS: BP 139/85; PULSE 70; RESP 16; TEMP 36.6; O2SAT 98
[2024-10-14] MEDS: Lidocaine HCl 1 % 20 ML VIAL SUBCUT (15:27)
[2024-10-14 19:40] VITALS: BP 124/70; PULSE 87; RESP 17; TEMP 36.3; O2SAT 97
[2024-10-15 01:52] VITALS: RESP 16
[2024-10-15] MEDS: Morphine Sulfate 4 MG/ML CARTRIDGE IVPUSH (01:52)
[2024-10-15 04:00] VITALS: BP 138/67; PULSE 73; RESP 17; TEMP 36.6; O2SAT 99
[2024-10-15] MEDS: Doxycycline Hyclate 100 MG in 0.9 % Sodium Chloride 250 ML 166.7 MG IV (06:03)
--- NOTE | 2024-10-15 07:27 | P.DS_ITS ---
DS: Providers Provider Date of Service: 10/15/24 Date of admission: 10/12/24 06:26 Date of discharge: 10/15/24 Primary care physician: Unknown Physician Consults: 10/12/24 06:26 Consult to Urology Routine Consulting Provider: [facility] Reason for consultation: infected hydrocele DS: Diagnosis Discharge Diagnosis (1) Infected hydrocele: Status: Acute DS: Summary Hospital Course Hospital Course: History and physical as per admitting provider. Patient is a 29-year-old male with a past medical history significant for syphilis at 26 years old and chlamydia at 16 years old, who presented to the ED with right testicular swelling since 10/08/2024 and penile discharge worsening over the past few months. He denies any blood in the discharge or foul odor. Since the swelling began he started to have a fever and chills. He reports he was last sexually active on 10/09/2024. He does have increased pain with a bowel movement and denies any nausea vomiting or urinary symptoms including dysuria, frequency or urgency. He denies any abdominal pain. He denies anal intercourse or recent urologic procedures. 29-year-old man treated for sepsis secondary to infected hydrocele with history of multiple STIs but negative during this hospitalization. Scrotal ultrasound showed infected hydrocele. Started on doxycycline during hospitalization but given a dose IM ceftriaxone and initially IV Levaquin. He was seen and evaluated by Urology who aspirated the hydrocele on 10/14/2024. Plan is to continue doxycycline for total of 2 weeks. Patient should follow up with Urology if any further episodes of edema or pain noted to testicles. Morbid obesity. BMI 41.8. Discussed importance of weight management as this may be contributing to worsening of other comorbidities Time Attestation Discharge Coordination Time (in mins): 35 Quality: Safe Use of Opioids Does Pt have an Active Cancer Diagnosis on the Problem List?: No Quality: Stroke Does the patient have a stroke diagnosis?: No Physical Exam Vital Signs: Vital Signs: Last Vital Signs Temp 97.8 F 10/15/24 04:00 Pulse 73 10/15/24 04:00 Resp 17 10/15/24 04:00 BP 138/67 10/15/24 04:00 Pulse Ox 99 10/15/24 04:00 O2 Del Method Room Air 10/15/24 04:00 BMI result Body Mass Index 41.8 Appearing in no acute distress head is normocephalic atraumatic eyes pupils are PERRLA sclera is anicteric mouth throat mucous membranes are intact and moist neck is supple no lymphadenopathy, no JVD noted lung sounds are clear to auscultation heart regular rate rhythm, clear S1, S2 positive bowel sounds, abdomen is soft, nontender neuro patient is alert x3, no focal deficits DS: Data Data Completed and Pending Labs on day of discharge: Preliminary micro results at discharge 10/12/24 05:05 Blood Culture - Preliminary Blood - Venous No growth after 48 hours. 10/12/24 05:02 Blood Culture - Preliminary Blood - Venous No growth after 48 hours. Discharge Plan Discharge Anticipated Discharge Date/Time: 10/15/24 07:26 Patient Disposition: Home, Self-Care Discharge Diagnosis: Infected Hydrocele Referrals: Familia Mckeon MD [Physician] - None Discharge Medications: New doxycycline hyclate 100 mg tablet 100 mg PO BID Qty: 28 0RF oxycodone 5 mg tablet 5 mg PO Q8H PRN (Reason: pain) Qty: 12 0RF Rx Instructions: Partial Fill upon patient request. ibuprofen [IBU] 800 mg tablet 800 mg PO Q8H PRN (Reason: pain) Qty: 9 0RF Discharge Orders: Discharge Order (Routine); Ordered 10/15/24 Ordered By: Maddie Watts Diet: Advance to usual diet Activity on Discharge: As tolerated Stand Alone Forms: Patient Portal Discharge page Print Language: Greek Care Plan Goals: Follow up with Urology if you continue to have any issues with scrotal edema Health Concerns: Infected Hydrocele Plan of Treatment: Follow-up with primary care provider as needed Take all medications as prescribed Assessment: See discharge summary Discharge Date/Time: 10/15/24 10:36
[2024-10-15 07:38] VITALS: BP 142/77; PULSE 77; RESP 16; TEMP 37; O2SAT 99
[2024-10-15] MEDS: 0.9 % Sodium Chloride Flush 3 ML SYRINGE IVFLUSH (08:32)
[2024-10-17 16:18] LABS: RPR Quantitative Reactive 1:32 (Nonreactive); T.Pallidum Particle Agg Test Reactive (Nonreactive)
== END 2024-10-15 10:36 | disposition home or self-care (01) | DRG 872 ==
LOC: HO.ED 06:06 → HO.EDOVER 06:30 → HO.S3 16:08
PROVIDERS: Admitting Provider Student in an Organized Health Care Education/Training Program; Emergency Provider Internal Medicine; Visit Provider Nurse Practitioner Acute Care
DX: A41.9 Sepsis, unspecified organism (principal); Z68.41 Body mass index [BMI] 40.0-44.9, adult; N43.1 Infected hydrocele; Z20.822 Contact with and (suspected) exposure to COVID-19; E66.01 Morbid (severe) obesity due to excess calories; Z86.19 Personal history of other infectious and parasitic diseases
CPT/HCPCS: 0241U; 36415; 76870; 80048; 80053; 81001; 83605; 85025; 85027; 86592; 86780; 87040; 87491; 87591; 99285; J0696; J1885; J1956; J2003; J2270; J2405

== ENCOUNTER → 2024-10-12 05:00 | Outpatient (BNV) | payer MEDICAID, SELFPAY | PROVIDERS: Admitting Provider Student in an Organized Health Care Education/Training Program; Emergency Provider Internal Medicine; Visit Provider Radiology Diagnostic Radiology | DX: N50.3 Cyst of epididymis (principal); N43.0 Encysted hydrocele; N43.1 Infected hydrocele; Z86.19 Personal history of other infectious and parasitic diseases | CPT/HCPCS: 76870; 93976 ==

== ENCOUNTER → 2024-10-12 06:26 | Outpatient (BNV) | payer SELFPAY | PROVIDERS: Admitting Provider Student in an Organized Health Care Education/Training Program; Emergency Provider Internal Medicine; Visit Provider Urology | DX: N43.1 Infected hydrocele (principal) | CPT/HCPCS: 99222; 99232 ==

== ENCOUNTER → 2024-10-12 06:26 | Outpatient (BNV) | payer MEDICAID, SELFPAY | PROVIDERS: Admitting Provider Student in an Organized Health Care Education/Training Program; Emergency Provider Internal Medicine; Visit Provider Physician Assistant | DX: N43.1 Infected hydrocele (principal) | CPT/HCPCS: 99223; 99232; 99499 ==